=== PATIENT | male | born 1980 | race Caucasian/White ===

== ENCOUNTER 2018-02-24 08:31 | Outpatient (CLI) | payer OTHER ==
--- NOTE | 2018-02-24 11:38 | RAD ---
BARIUM SWALLOW ESOPHOGRAM WITH AIR CONTRAST: Date: 02-24-18 History: 38-year-old male with dysphagia and gastroesophageal reflux disease. Technique: Upright administration of effervescent granules, thick liquid barium, and barium tablet with water. Kelle SANCHEZ straw administration of thin liquid barium. FINDINGS: The esophagus has normal motility, distensibility, and mucosal pattern. The barium tablet passes rapi dly into the stomach. There is a small sliding hiatal hernia associated with prominent gastroesophage al reflux. IMPRESSION: 1. Small sliding hiatal hernia with prominent gastroesophageal reflux. 2. No stricture. POS: [facility]
== END 2018-02-24 08:32 | disposition home or self-care (01) ==
LOC: RAD 08:31
PROVIDERS: ATTEND Internal Medicine
DX: K21.9 Gastro-esophageal reflux disease without esophagitis (principal); R13.10 Dysphagia, unspecified; K44.9 Diaphragmatic hernia without obstruction or gangrene
CPT/HCPCS: 74220